=== PATIENT | male | born 1935 | race Caucasian/White ===

== ENCOUNTER → 2019-10-30 | Outpatient (CLI) | payer MEDICARE, OTHER ==
--- NOTE | 2019-10-30 14:46 | Diagnostic Imaging Report ---
PROCEDURE: CT chest without contrast. TECHNIQUE: Multiple contiguous axial images were obtained through the chest without the use of intravenous contrast. Auto Exposure Controls were utilized during the CT exam to meet ALARA standards for radiation dose reduction. INDICATION: Lower lobe pneumonia. COMPARISON: None provided. FINDINGS: The heart size is enlarged. No pericardial effusion is present. A prosthetic aortic valve is noted. There is calcified aortic and coronary atherosclerotic plaque. Mildly prominent mediastinal lymph nodes are present. Consolidative opacities are seen in the left lung base with a small left pleural effusion. Minimal dependent atelectasis is seen in the right lung base. No pneumothorax. The lungs demonstrate no pulmonary nodules or masses. There are no focal areas of consolidation. No central endobronchial obstructing lesions are identified. There is no pleural effusion or pneumothorax. The osseous structures demonstrate no acute abnormalities. Limited views of the upper abdominal structures demonstrate no acute abnormalities. Both adrenal glands are unremarkable. IMPRESSION: 1. Consolidative opacities in the left lower lobe, consistent with pneumonia. A small pleural effusion is also present on the left. 2. Reactive mildly prominent mediastinal lymphadenopathy. 3. Cardiomegaly. Dictated by: Dictated on workstation # [id number]
== END ==
LOC: RAD FS 13:49
PROVIDERS: ATTEND Family Medicine
DX: J18.9 Pneumonia, unspecified organism (principal); J90 Pleural effusion, not elsewhere classified; R59.0 Localized enlarged lymph nodes; I51.7 Cardiomegaly
CPT/HCPCS: 71250

== ENCOUNTER → 2022-03-25 | Outpatient (CLI) | payer MEDICARE, OTHER ==
--- NOTE | 2022-03-25 15:53 | Diagnostic Imaging Report ---
PROCEDURE: CT chest without contrast. TECHNIQUE: Multiple contiguous axial images were obtained through the chest without the use of intravenous contrast. Auto Exposure Controls were utilized during the CT exam to meet ALARA standards for radiation dose reduction. INDICATION: Recent history of pneumonia. Patient has had continued shortness of breath for two months. COMPARISON: Correlation is made with prior chest CT from 10/30/2019. FINDINGS: No axillary lymphadenopathy is detected. Slightly prominent lymph node in the right paratracheal location demonstrates a short axis measurement of 11 mm. This compares with 10 mm on prior study. No definite hilar lymphadenopathy is seen. There is no pericardial or pleural fluid. Minimal tree-in-bud infiltrate in the bilateral upper lobes is seen. There is extensive consolidation with air bronchograms in the left lower lobe consistent with pneumonia. Right lower lobe is clear. No discrete mass is identified. Upper abdomen shows hepatic low-attenuation lesions, too small to characterize but likely cysts. IMPRESSION: 1. Extensive left lower lobe consolidation and air bronchograms consistent with pneumonia. There are also some mild patchy tree-in-bud opacities in bilateral upper lobes, consistent with an infectious/inflammatory process. No chest effusion is seen. Report was called and faxed to the office of Shannen Whitaker APRN at 3:47 p.m., by devyn (for CHRISTINE). Dictated by: Dictated on workstation # [id number]
== END ==
LOC: RAD FS 14:09
PROVIDERS: ATTEND Nurse Practitioner Family
DX: R91.8 Other nonspecific abnormal finding of lung field (principal); R06.02 Shortness of breath; J18.9 Pneumonia, unspecified organism; J18.1 Lobar pneumonia, unspecified organism
CPT/HCPCS: 71250